=== PATIENT | male | born 1985 | race Caucasian/White ===

== ENCOUNTER 2020-06-24 16:54 | Emergency (ER) | payer SELFPAY | END 2020-06-24 17:48 | disposition home or self-care (01) | LOC: JVIRT 16:54 | DX: Z03.818 Encounter for observation for suspected exposure to other biological agents ruled out (principal) | CPT/HCPCS: C9803; G2012-GT; U0003 ==

== ENCOUNTER 2020-07-09 12:10 | Emergency (ER) | payer SELFPAY | END 2020-07-09 13:35 | disposition home or self-care (01) | LOC: JVIRT 12:10 | DX: Z03.818 Encounter for observation for suspected exposure to other biological agents ruled out (principal) | CPT/HCPCS: C9803; G2012-GT; U0003 ==

== ENCOUNTER 2023-03-25 12:34 | Emergency (ER) | payer SELFPAY ==
[2023-03-25 12:48] VITALS: BP 129/90; PULSE 88; RESP 18; TEMP 98.2; BMI 27.0
[2023-03-25] MEDS ORDERED: DIPHTH,PERTUSS(ACELL),TET 0.5 ML DISP.SYRIN IM ONE ×2 (13:01→13:38)
== END 2023-03-25 14:08 | disposition home or self-care (01) ==
LOC: FER 12:34
PROC: 0HQ1XZZ Repair Face Skin, External Approach (ICD-10-PCS; principal; 2023-03-25)
PROC: 3E0234Z Introduction of Serum, Toxoid and Vaccine into Muscle, Percutaneous Approach (ICD-10-PCS; 2023-03-25)
DX: S01.111A Laceration without foreign body of right eyelid and periocular area, initial encounter (principal); R51.9 Headache, unspecified; W01.198A Fall on same level from slipping, tripping and stumbling with subsequent striking against other object, initial encounter
CPT/HCPCS: 90715; 99282-25